=== PATIENT | male | born 1975 | race Caucasian/White ===

== ENCOUNTER 2018-06-16 18:32 | Emergency (ER) | payer SELFPAY ==
[~2018-06-16] VITALS: Ht 177.8 cm; Wt 86.2 kg
[2018-06-16] MEDS ORDERED: NIFEDIPINE 10 MG CAP PO STA (19:01)
[2018-06-16] MEDS ORDERED: NIFEDIPINE 10 MG CAP PO ONE (19:05)
[2018-06-16 19:44] LABS: BASOPHILS # (AUTO) 0.1 (0.0-0.1); BASOPHILS % 0.8 % (0.0-1.0); EOSINOPHILS # (AUTO) 0.1 (0.0-0.4); EOSINOPHILS % 0.9 % (0.0-6.0); HEMATOCRIT 46.1 % (38.2-49.6); HEMOGLOBIN 16.7 g/dL (14.0-18.0); LYMPHOCYTES # (AUTO) 1.9 (1.0-3.2); LYMPHOCYTES % 21.1 % (18.0-39.1); MEAN CORPUSCULAR HEMOGLOBIN 31.9 pg (28-32); MEAN CORPUSCULAR HGB CONC 36.2 g/dL (31-35); MONOCYTES # (AUTO) 0.8 (0.2-0.8); NEUTROPHILS % 67.8 % (38.7-80.0); PLATELET COUNT 266 x10e3/uL (140-360); RED BLOOD COUNT 5.24 x10e6/uL (4.3-5.7); RED CELL DISTRIBUTION WIDTH 11.7 % (11.7-14.4)
[2018-06-16 19:53] LABS: BILIRUBIN,URINE NEGATIVE (NEGATIVE); CLARITY,URINE SL CLOUDY (CLEAR); KETONES,URINE NEGATIVE (NEGATIVE); LEUKOCYTE ESTERASE ,URINE NEGATIVE (NEGATIVE); NITRITE,URINE NEGATIVE (NEGATIVE); PROTEIN,URINE DIPSTICK NEGATIVE (NEGATIVE); URINE UROBILINOGEN 0.2 mg/dL (0.2 - 1)
[2018-06-16 19:55] LABS: COLOR,URINE YELLOW (YELLOW)
[2018-06-16 20:07] LABS: ALANINE AMINOTRANSFERASE 26 IU/L (0-55); ALBUMIN 4.5 g/dL (3.5-5.0); ALBUMIN/GLOBULIN RATIO 1.7 (0.8-2.0); ALKALINE PHOSPHATASE 52 IU/L (40-150); ANION GAP 15.9 mmol/L (8-16); BLOOD UREA NITROGEN 12 mg/dL (7-26); BUN/CREATININE RATIO 11 (6-25); CALCIUM 9.8 mg/dL (8.4-10.2); CARBON DIOXIDE 25 mmol/L (22-29); CHLORIDE 96 mmol/L (98-107); CREATININE, SERUM 1.08 mg/dL (0.72-1.25); EST GLOMERULAR FILTRATION RATE > 60 ML/MIN (60-); GLUCOSE 109 mg/dL (74-118); SODIUM 134 mmol/L (136-145)
[2018-06-16 20:08] LABS: AMORPHOUS SEDIMENT,URINE MODERATE (FEW); BACTERIA,URINE FEW /HPF
[2018-06-16 20:09] LABS: POTASSIUM 2.9 mmol/L (3.5-5.1)
[2018-06-16 20:11] LABS: AMYLASE 55 U/L (25-125); LIPASE 41 U/L (8-78)
[2018-06-16] MEDS ORDERED: PROMETHAZINE HCL 25 MG TAB PO ONE (20:30)
[2018-06-16] MEDS ORDERED: DONNATAL/LIDOCAINE/MAALOX 30 ML SUSP PO ONE (20:30)
[2018-06-16] MEDS ORDERED: POTASSIUM CHLORIDE 20 MEQ TAB CR PO ONE (20:30)
[2018-06-16] MEDS ORDERED: MORPHINE SULFATE INJ 4 MG/ML INJ IV ONE (20:30)
[2018-06-16] MEDS ORDERED: HYDRALAZINE HCL 20 MG/ML VIAL IV ONE ×2 (22:00)
[2018-06-16] MEDS ORDERED: ENALAPRILAT IV INJ 1.25 MG/ML VIAL IV STA (22:34)
[2018-06-16 23:22] VITALS: BP 150/102
== END 2018-06-16 23:34 | disposition home or self-care (01) ==
LOC: ER 18:32
DX: R10.33 Periumbilical pain (principal); R11.2 Nausea with vomiting, unspecified; K29.20 Alcoholic gastritis without bleeding; E87.6 Hypokalemia; K52.9 Noninfective gastroenteritis and colitis, unspecified; F17.210 Nicotine dependence, cigarettes, uncomplicated
CPT/HCPCS: 36415; 80053; 81001; 82150; 83690; 85025; 99284; J0360; J2270

== ENCOUNTER 2020-09-06 15:32 | Emergency (ER) | payer BC ==
[~2020-09-06] VITALS: Ht 177.8 cm; Wt 86.2 kg
[2020-09-06] MEDS ORDERED: KETOROLAC TROMETHAMINE 60 MG/2 ML VIAL ONE (16:35)
[2020-09-06] MEDS ORDERED: DIAZEPAM 2 MG TAB PO ONE (17:00)
[2020-09-06] MEDS ORDERED: KETOROLAC TROMETHAMINE 60 MG/2 ML VIAL IM ONE (17:00)
[2020-09-06] MEDS ORDERED: HYDROCODONE/APAP 5MG-325MG TAB PO ONE (17:00)
[2020-09-06 17:33] LABS: CLARITY,URINE HAZY (CLEAR); COLOR,URINE YELLOW (YELLOW); LEUKOCYTE ESTERASE ,URINE NEGATIVE (NEGATIVE)
[2020-09-06 17:34] LABS: BILIRUBIN,URINE SMALL (NEGATIVE); KETONES,URINE 2+ (NEGATIVE); NITRITE,URINE NEGATIVE (NEGATIVE); PROTEIN,URINE DIPSTICK NEGATIVE (NEGATIVE); URINE UROBILINOGEN 0.2 mg/dL (0.2 - 1)
[2020-09-06 17:37] LABS: BACTERIA,URINE FEW /HPF; EPITHELIAL CELLS,URINE FEW /LPF; RBC,URINE 0-5 /HPF (0-5)
[2020-09-06] MEDS ORDERED: ONDANSETRON HCL 4 MG ORAL DISINTEGRATING TAB ONE (17:54)
[2020-09-06] MEDS ORDERED: ONDANSETRON HCL INJ 2MG/ML 2ML 2 MG/ML VIAL IV STA (17:58)
[2020-09-06] MEDS ORDERED: MORPHINE SULFATE INJ 4 MG/ML INJ 1ML IV STA (17:58)
[2020-09-06] MEDS ORDERED: SODIUM CHLORIDE 0.9% 1000ML 1,000 ML IV STA (17:58)
[2020-09-06 18:37] LABS: BASOPHILS # (AUTO) 0.1 (0.0-0.1); EOSINOPHILS # (AUTO) 0.1 (0.0-0.4); EOSINOPHILS % 0.9 % (0.0-6.0); HEMATOCRIT 47.2 % (38.2-49.6); HEMOGLOBIN 16.8 g/dL (14.0-18.0); LYMPHOCYTES # (AUTO) 1.3 (1.0-3.2); LYMPHOCYTES % 15.8 % (18.0-39.1); MEAN CORPUSCULAR HEMOGLOBIN 31.5 pg (28-32); MEAN CORPUSCULAR HGB CONC 35.6 g/dL (31-35); MEAN CORPUSCULAR VOLUME 88.6 fL (81-99); MONOCYTES # (AUTO) 0.8 (0.2-0.8); NEUTROPHILS # (AUTO) 5.9 (2.1-6.9); NEUTROPHILS % 71.8 % (38.7-80.0); PLATELET COUNT 338 x10e3/uL (140-360); RED BLOOD COUNT 5.33 x10e6/uL (4.3-5.7); RED CELL DISTRIBUTION WIDTH 11.9 % (11.7-14.4)
--- NOTE | 2020-09-06 18:45 | Emergency Department Note ---
History of Present Illnes History of Present Illness Chief Complaint: Back Pain History of Present Illness This is a 44 year old male PATIENT IN FROM HOME WITH COMPLAINTS OF RIGHT LOWER BACK PAIN; STATES PAIN IS BETTER WHEN LYING DOWN, WORSE WHEN SITTING AND THE WORST WHEN GETTING UP AND WALKING. PATIENT APPEARS UNCOMFORTABLE, RATES PAIN 5/10 WHEN SITTING AND 10/10 WHEN STANDING OR WALKING. PATIENT DENIES ANY TRAUMA OR FALL. PATIENT ALERT AND ORIENTED, RESP EVEN AND NONLABORED.. Historian: Patient Arrival Mode: Car Return Agent Required: No Onset (how long ago): day(s) Location: RIGHT FLANK Quality: PAIN Radiation: Reports non-radiation Severity: severe Onset quality: gradual Timing of current episode: constant Chronicity: new Context: Denies recent illness, Denies trauma/injury Relieving factors: none Exacerbating factors: movement Associated symptoms: Reports denies other symptoms (HUMAIRA FUENTES MD) Past Medical/Family History Physician Review I have reviewed the patient's past medical and family history. Any updates have been documented here. (HUMAIRA FUENTES MD) Past Medical History Recent Fever: No Clinical Suspicion of Infectio: No New/Unexplained Change in Ment: No Past Medical History: None Past Surgical History: Hernia Repair Other Surgery: hernia (HUMAIRA FUENTES MD) Social History Smoking Cessation: Former smoker Counseling Performed: No Alcohol Use: Occasional Any Illegal Drug Use: No TB Exposure/Symptoms: No Physically hurt or threatened: No (HUMAIRA FUENTES MD) Family History Family history of heart diseas: No (HUMAIRA FUENTES MD) Other Last Tetanus: utd Any Pre-Existing Lines (PICC,: No (HUMAIRA FUENTES MD) Review of Systems Review of Systems Constitutional: Reports no symptoms EENTM: Reports no symptoms Cardiovascular: Reports no symptoms Respiratory: Reports no symptoms Gastrointestinal: Reports no symptoms Genitourinary: Reports no symptoms Musculoskeletal: Reports as per HPI, Reports back pain Integumentary: Reports no symptoms Neurological: Reports no symptoms Psychological: Reports no symptoms Endocrine: Reports no symptoms Hematological/Lymphatic: Reports no symptoms (HUMAIRA FUENTES MD) Physical Exam Related Data Allergies: Coded Allergies: No Known Drug Allergies (Verified Allergy, Unknown, 06/16/18) Triage Vital Signs Vital Signs Date Time Temp Pulse Resp B/P (MAP) Pulse Ox O2 Delivery O2 Flow Rate FiO2 09/06/20 15:42 97.6 86 18 134/86 98 Room Air Vital signs reviewed: Yes (HUMAIRA FUENTES MD) Physical Exam CONSTITUTIONAL Constitutional: Present well-developed, Present well-nourished HENT HENT: Present normocephalic, Present atraumatic, Present oropharynx clear/moist, Present nose normal HENT L/R: Present left ext ear normal, Present right ext ear normal EYES Eyes: Reports PERRL, Reports conjunctivae normal NECK Neck: Present ROM normal PULMONARY Pulmonary: Present effort normal, Present breath sounds normal CARDIOVASCULAR Cardiovascular: Present regular rhythm, Present heart sounds normal, Present capillary refill normal, Present normal rate GASTROINTESTINAL Abdominal: Present soft, Present nontender, Present bowel sounds normal GENITOURINARY Genitourinary: Present exam deferred SKIN Skin: Present warm, Present dry MUSCULOSKELETAL Musculoskeletal: Present ROM normal, Present other (RIGHT MID BACK PAIN/TENDERNESS IN CVA AREA BUT HE SAYS IT'S WORSE WITH MOVEMENT) NEUROLOGICAL Neurological: Present alert, Present oriented x 3, Present no gross motor or sensory deficits PSYCHOLOGICAL Psychological: Present mood/affect normal, Present judgement normal (HUMAIRA FUENTES MD) Results Laboratory Laboratory Laboratory Tests Test 09/06/20 18:15 09/06/20 15:47 Urine Color Yellow (YELLOW) Urine Clarity Hazy (CLEAR) Urine pH 6 (5 - 7) Urine Specific [place] >=1.030 (1.010-1.025) Urine Protein Negative (NEGATIVE) Urine Glucose (UA) Negative (NEGATIVE) Urine Ketones 2+ (NEGATIVE) Urine Blood Negative (NEGATIVE) Urine Nitrite Negative (NEGATIVE) Urine Bilirubin Small (NEGATIVE) Urine Urobilinogen 0.2 mg/dL (0.2 - 1) Urine Leukocyte Esterase Negative (NEGATIVE) Urine RBC 0-5 /HPF (0-5) Urine WBC 6-10 /HPF (0-5) Urine Epithelial Cells Few /LPF (NONE) Urine Bacteria Few /HPF (NONE) Lab results reviewed: Yes (HUMAIRA FUENTES MD) Assessment & Plan Medical Decision Making MDM CHECK UA, GIVE PAIN MEDS, LIKELY MUSCULOSKELETAL PAIN BUT R/O HEMATURIA WHICH WE WOULD THEN CHECK CT TO R/O URETEROLITHIASIS, R/O UTI/PYELO (HUMAIRA FUENTES MD) MDM Signout obtained from Dr. Fuentes follow-up CT abdomen and pelvis and disPO patient. Patient CT findings unremarkable for any acute pathology. Patient informed of results was stable for discharge home. (TERRELL BOB, DO) Reassessment Reassessment PT NOT IMPROVED AFTER MEDS AND NOW IS VOMITING, UA SHOWS 6-10 WBC'S AND 2+ KETONES - WILL CHECK CBC, CHEM, CK, AND CT ABD/PELVIS - R/O RENAL INSUFF, RHABDOMYOLYSIS, KIDNEY STONE. REPORT TO DR BOB TO F/U LABS, CT, AND DISPO PT (HUMAIRA FUENTES MD) Assessment & Plan Final Impression: (1) Flank pain (HUMAIRA FUENTES MD) Depart Disposition: HOME, SELF-CARE Last Vital Signs Date Time Temp Pulse Resp B/P (MAP) Pulse Ox O2 Delivery O2 Flow Rate FiO2 09/06/20 17:52 95 12 100 09/06/20 15:59 98.0 159/70 Room Air (HUMAIRA FUENTES MD) Medications in the ED Ketorolac Tromethamine 60 mg ONCE ONCE IM Last administered on 09/06/20at 16:42; Admin Dose 60 MG; Start 09/06/20 at 17:00; Stop 09/06/20 at 17:01; Status DC Acetaminophen/ Hydrocodone Bitart 1 ea ONCE ONCE PO Last administered on 09/06/20at 16:42; Admin Dose 1 EA; Start 09/06/20 at 17:00; Stop 09/06/20 at 17:01; Status DC Diazepam 5 mg ONCE ONCE PO Last administered on 09/06/20at 16:42; Admin Dose 5 MG; Start 09/06/20 at 17:00; Stop 09/06/20 at 17:01; Status DC Ketorolac Tromethamine 60 mg STK-MED ONCE .ROUTE ; Start 09/06/20 at 16:35; Stop 09/06/20 at 16:29; Status DC Ondansetron HCl 4 mg STK-MED ONCE .ROUTE ; Start 09/06/20 at 17:54; Stop 09/06/20 at 17:47; Status DC Morphine Sulfate 4 mg ONCE STAT IV ; Start 09/06/20 at 17:58; Stop 09/06/20 at 18:05; Status DC Ondansetron HCl 4 mg ONCE STAT IV ; Start 09/06/20 at 17:58; Stop 09/06/20 at 18:05; Status DC Sodium Chloride 1,000 ml @ 0 mls/hr Q0M STAT IV ; Start 09/06/20 at 17:58; Stop 09/06/20 at 18:01; Status DC (HUMAIRA FUENTES MD) HUMAIRA FUENTES MD Sep 06, 2020 18:45 TERRELL BOB DO Sep 07, 2020 03:25
[2020-09-06 19:03] LABS: ALANINE AMINOTRANSFERASE 25 IU/L (0-55); ALBUMIN/GLOBULIN RATIO 1.4 (0.8-2.0); ALKALINE PHOSPHATASE 68 IU/L (40-150); ANION GAP 21.6 mmol/L (8-16); BLOOD UREA NITROGEN 14 mg/dL (7-26); BUN/CREATININE RATIO 12 (6-25); CALCIUM 10.5 mg/dL (8.4-10.2); CARBON DIOXIDE 21 mmol/L (22-29); CHLORIDE 99 mmol/L (98-107); CREATINE KINASE 206 IU/L (30-200); EST GLOMERULAR FILTRATION RATE > 60 ML/MIN (60-); GLUCOSE 120 mg/dL (74-118); POTASSIUM 3.6 mmol/L (3.5-5.1); SODIUM 138 mmol/L (136-145)
--- NOTE | 2020-09-06 19:04 | NUR ---
IV discontinued at this time. Patient screaming that the IV hurt.
--- NOTE | 2020-09-06 20:19 | Diagnostic Imaging Report ---
EXAM: CT Abdomen and Pelvis WITHOUT contrast INDICATION: Lower back pain, stone protocol COMPARISON: None. TECHNIQUE: Abdomen and pelvis were scanned utilizing a multidetector helical scanner from the lung base to the pubic symphysis without administration of IV contrast. Absence of intravenous contrast decreases sensitivity for detection of focal lesions and vascular pathology. Coronal and sagittal reformations were obtained. Routine protocol was performed. IV CONTRAST: None ORAL CONTRAST: None COMPLICATIONS: None RADIATION DOSE: Total DLP: 532 mGy*cm Estimated effective dose: (DLP x 0.015 x size factor) mSv CTDIvol has been reviewed. It is below the limits set by the Radiation Protocol Committee (RPC). Dose modulation, iterative reconstruction, and/or weight based adjustment of the mA/kV was utilized to reduce the radiation dose to as low as reasonably achievable. FINDINGS: LINES and TUBES: None. LOWER THORAX: Unremarkable HEPATOBILIARY: No focal hepatic lesions. No biliary ductal dilation. GALLBLADDER: No radio-opaque stones or sludge. No wall thickening. SPLEEN: No splenomegaly. PANCREAS: No focal masses or ductal dilatation. ADRENALS: No adrenal nodules KIDNEYS/URETERS: No hydronephrosis. No cystic or solid mass lesions. No stones. GI TRACT: No abnormal distention, wall thickening, or evidence of bowel obstruction. There are diverticula within the colon without evidence of diverticulitis. Appendix is normal. PELVIC ORGANS/BLADDER: Nodular prostatic calcifications. Unremarkable. LYMPH NODES: No lymphadenopathy. VESSELS: Unremarkable. PERITONEUM / RETROPERITONEUM: No free air or fluid. BONES: Degenerative changes. SOFT TISSUES: Unremarkable. IMPRESSION: Colonic diverticulosis without diverticulitis. No obvious urinary tract abnormalities. Signed by: Alexis Baker DO on 09/06/2020 8:16 PM
[2020-09-06 20:31] VITALS: BP 164/87
== END 2020-09-06 21:05 | disposition home or self-care (01) ==
LOC: ER 15:52
DX: M54.5 Low back pain (principal)
CPT/HCPCS: 36415; 74176; 80053; 81001; 82550; 82553; 84484; 85025; 87086; 99284; J1885; J2270; J2405; J7030; Q0162; 99283

== ENCOUNTER 2024-05-15 09:14 | Emergency (ER) | payer BC, OTHER ==
[~2024-05-15] VITALS: Ht 177.8 cm; Wt 86.2 kg
[2024-05-15] MEDS ORDERED: CEFTRIAXONE 1 GM VIAL IV SCH (09:30)
[2024-05-15] MEDS: ONDANSETRON HCL INJ 2MG/ML 2ML 2 MG/ML VIAL IV STA (09:40)
[2024-05-15] MEDS: SODIUM CHLORIDE 0.9% 1000ML 1,000 ML IV ONE (09:41)
[2024-05-15] MEDS: ACETAMINOPHEN 1000 MG/100 ML IV STA (09:41)
[2024-05-15] MEDS: CEFTRIAXONE 1 GM in SODIUM CHLORIDE 0.9% 100 ML IV SCH (09:42)
[2024-05-15 09:45] LABS: BASOPHILS # (AUTO) 0.1 (0.0-0.1); BASOPHILS % 0.6 % (0.0-1.0); HEMATOCRIT 45.8 % (38.2-49.6); HEMOGLOBIN 16.6 g/dL (14.0-18.0); LYMPHOCYTES % 12.8 % (18.0-39.1); MEAN CORPUSCULAR HGB CONC 36.2 g/dL (31-35); MEAN CORPUSCULAR VOLUME 88.2 fL (81-99); MONOCYTES # (AUTO) 0.3 (0.2-0.8); MONOCYTES % 3.8 % (4.4-11.3); NEUTROPHILS # (AUTO) 6.7 (2.1-6.9); NEUTROPHILS % 82.2 % (38.7-80.0); PLATELET COUNT 96 x10e3/uL (140-360); RED BLOOD COUNT 5.19 x10e6/uL (4.3-5.7); RED CELL DISTRIBUTION WIDTH 11.9 % (11.7-14.4)
[2024-05-15] MEDS ORDERED: CEFTRIAXONE 1 GM in SODIUM CHLORIDE 0.9% 100 ML IV ONE (09:45)
[2024-05-15 09:59] LABS: INR 0.94; PROTHROMBIN TIME 13.2 seconds (11.9-14.5)
[2024-05-15 10:00] LABS: PARTIAL THROMBOPLASTIN TIME 29.6 seconds (23.8-35.5)
[2024-05-15 10:06] LABS: ALBUMIN 3.7 g/dL (3.5-5.0); ALBUMIN/GLOBULIN RATIO 0.9 (0.8-2.0); ANION GAP 19.7 mmol/L (8-16); BILIRUBIN,TOTAL 0.9 mg/dL (0.2-1.2); CREATININE, SERUM 1.17 mg/dL (0.72-1.25); POTASSIUM 3.7 mmol/L (3.5-5.1); TOTAL PROTEIN 7.7 g/dL (6.5-8.1)
[2024-05-15] MEDS: KETOROLAC TROMETHAMINE 30 MG/ML VIAL IV STA (10:11)
[2024-05-15] MEDS: METOCLOPRAMIDE HCL 10 MG/2ML VIAL IV ONE (10:11)
[2024-05-15 11:51] VITALS: PULSE 98; RESP 17; TEMP 99.7
[2024-05-15] MEDS: SODIUM CHLORIDE 0.9% 1000ML 2,590 ML IV SCH (11:51)
[2024-05-15 12:06] LABS: BILIRUBIN,URINE MODERATE (NEGATIVE); CLARITY,URINE CLOUDY (CLEAR); COLOR,URINE YELLOW (YELLOW); GLUCOSE, URINE NEGATIVE (NEGATIVE); KETONES,URINE >=160 (NEGATIVE); LEUKOCYTE ESTERASE ,URINE NEGATIVE (NEGATIVE); NITRITE,URINE NEGATIVE (NEGATIVE); PH,URINE 6 (5 - 7); PROTEIN,URINE DIPSTICK 2+ (NEGATIVE); URINE UROBILINOGEN 1 mg/dL (0.2 - 1)
[2024-05-15] MEDS ORDERED: IOPAMIDOL 370 MG/ML 100 ML INFUS..BTL INJ ONE (12:08)
[2024-05-15 12:18] LABS: RBC,URINE 0-5 /HPF (0-5); WBC,URINE (MAN) 0-5 /HPF (0-5)
[2024-05-15 12:19] LABS: BACTERIA,URINE MODERATE /HPF; EPITHELIAL CELLS,URINE RARE /LPF
[2024-05-15] MEDS: FAMOTIDINE 20 MG/2 ML VIAL IV STA (12:38)
[2024-05-15] MEDS: SUCRALFATE 1 GM TAB PO STA (12:38)
[2024-05-15] MEDS: DONNATAL/LIDOCAINE/MAALOX 30 ML SUSP PO ONE (12:38)
[2024-05-15] MEDS ORDERED: ONDANSETRON ODT4 MG PO (13:46)
[2024-05-15 14:25] VITALS: BP 138/76; PULSE 72; O2SAT 100
== END 2024-05-15 14:30 | disposition home or self-care (01) ==
LOC: ER 09:22
DX: R50.9 Fever, unspecified (principal); R74.02 Elevation of levels of lactic acid dehydrogenase [LDH]; R19.7 Diarrhea, unspecified; M79.10 Myalgia, unspecified site
CPT/HCPCS: 36415; 71046; 74177; 80053; 81001; 83605; 85025; 85610; 85730; 87040; 87086; 87400; 93005; 99284; J0131; J0696; J1885; J2405; J2765; J7030; J7050; Q9967; U0002